=== PATIENT | female | born 1980 | race Caucasian/White ===

== ENCOUNTER 2021-03-20 06:35 | Emergency (ER) | payer MEDICAID ==
[~2021-03-20] VITALS: Ht 158.8 cm; Wt 69.9 kg
[2021-03-20 06:37] VITALS: BP 160/97
--- NOTE | 2021-03-20 06:43 | NUR ---
Dr. Raymundo examining patient.
--- NOTE | 2021-03-20 06:54 | NUR ---
PT TAKEN TO BED 4
--- NOTE | 2021-03-20 06:57 | NUR ---
Patient noted to have existing wounds upon arrival to ER. Wound was cleaned with 500ml of NS and gauze. Patient tolerated well but did complain of pain. Physician informed.
--- NOTE | 2021-03-20 07:14 | NUR ---
ERMD examining application of wrap on the right hand.
[2021-03-20 07:15] VITALS: BP 160/97
--- NOTE | 2021-03-20 07:15 | NUR ---
Patient discharged with v/s stable. Written and verbal after care instructions given and explained. Patient verbalized understanding. Ambulatory with steady gait. ID band removed. All questions addressed prior to discharge. Advised to follow up with PMD.
== END 2021-03-20 07:15 | disposition home or self-care (01) ==
LOC: MED 06:35
DX: S61.411A Laceration without foreign body of right hand, initial encounter (principal); W45.8XXA Other foreign body or object entering through skin, initial encounter; Y93.89 Activity, other specified; Y92.098 Other place in other non-institutional residence as the place of occurrence of the external cause; Y99.8 Other external cause status
CPT/HCPCS: 99281